=== PATIENT | male | born 1940 | race Caucasian/White ===

== ENCOUNTER 2016-12-23 09:53 | Outpatient (CLI) | payer MEDICARE ==
[2016-12-23 14:03] LABS: Cardiac Risk 4.1 (Less than 4.5)
== END 2016-12-23 09:54 | disposition home or self-care (01) ==
LOC: NAVSJIPCSP 09:53
PROVIDERS: ATTEND Internal Medicine
DX: E78.5 Hyperlipidemia, unspecified (principal); Z79.899 Other long term (current) drug therapy
CPT/HCPCS: 36415; 80061

== ENCOUNTER 2017-03-25 10:30 | Outpatient (CLI) | payer MEDICARE ==
[2017-03-25 12:47] LABS: Cardiac Risk 3.2 (Less than 4.5)
== END 2017-03-25 10:31 | disposition home or self-care (01) ==
LOC: NAVSJIPCSP 10:30
PROVIDERS: ATTEND Family Medicine
DX: E78.5 Hyperlipidemia, unspecified (principal); Z79.899 Other long term (current) drug therapy
CPT/HCPCS: 36415; 80061

== ENCOUNTER 2018-08-04 08:56 | Outpatient (CLI) | payer MEDICARE ==
--- NOTE | 2018-08-04 12:27 | ULT ---
CAROTID ULTRASOUND WITH MAHER SCALE AND DOPPLER DUPLEX COLOR FLOW IMAGING SPECTRAL ANALYSIS PERFORMED: DATE: 08/04/18 CLINICAL INDICATION: TIA. FINDINGS: There is scattered mild to moderate atherosclerotic calcification of the carotid arteries. PEAK SYSTOLIC VELOCITY (CM/S): Right CCA 72 Left CCA 71 Right ICA 59 Left ICA 64 There is antegrade flow within the visualized bilateral vertebral arteries. IMPRESSION: 1. No hemodynamically significant stenosis of the right internal carotid artery. 2. No hemodynamically significant stenosis of the left internal carotid artery. POS: FAITH
== END 2018-08-04 08:57 | disposition home or self-care (01) ==
LOC: NAV ULT 08:56
PROVIDERS: ATTEND Internal Medicine
DX: G45.9 Transient cerebral ischemic attack, unspecified (principal); I08.3 Combined rheumatic disorders of mitral, aortic and tricuspid valves
CPT/HCPCS: 93306; 93880

== ENCOUNTER 2019-06-22 10:56 | Emergency (ER) | payer MEDICARE | END 2019-06-22 11:31 | disposition left against medical advice (07) | LOC: NAV ERS 10:56 | DX: Z53.21 Procedure and treatment not carried out due to patient leaving prior to being seen by health care provider (principal) ==